=== PATIENT | male | born 1985 | race Caucasian/White ===

== ENCOUNTER 2016-08-28 13:26 | Emergency (ER) | payer OTHER ==
--- NOTE | 2016-08-28 15:07 | DIAGNOSTIC IMAGING REPORT ---
PROCEDURE: XR WRIST MIN 3 VIEWS - RIGHT INDICATION: TRAUMA/INJURY TECHNIQUE: Four views of the right wrist. COMPARISON: None. FINDINGS: Normal mineralization. No fractures. Normal osseous alignment. No suspicious soft-tissue calcification or radiodense foreign bodies. IMPRESSION: 1. Intact right wrist. 2. No radiodense foreign bodies in the indicated area of soft tissue injury.
--- NOTE | 2016-08-28 18:02 | ED DISCHARGE INSTRUCTIONS ---
Patient: FELIPE SURESH General Instructions [facility] VisitID: [id number] [place] [address] 31y, M Registration Date/Time: 08/28/2016 Dog bite to the right wrist. ADDITIONAL INFORMATION Dog Bite If a dog has bitten you and the wound is deep enough to break the skin, an infection may occur. Therefore, you should watch for the warning signs listed below. The doctor may not close the wound completely. This is to allow fluid to drain in the event of an infection. Home Care Watch the wound for signs of infection listed below. In certain types of bites, antibiotics may be prescribed. Begin taking these as soon as possible, as directed until they are all gone. Rabies Prevention If you live in an area where rabies occurs in wild animals, the rabies virus can be passed to cats and dogs. An infected animal can pass the rabies virus to you during a bite. If ahealthy-looking pet dog has bitten you, it should be kept in a secure area for the next 10 days to watch for signs of illness. If the pet cook helper pastry wont cooperate with you, contact the [facility] animal control department (or local law enforcement). If the animal becomes ill or dies days, contact your animal control department at once. The animal must be tested for rabies. If the animal stays healthy for the next 10 days, then there is no danger of rabies in the dog or you. Pets fully vaccinated against rabies (2 shots) are at very low risk for the infection. However, because human rabies is almost always fatal, any biting dog should be kept in confinement for 10 days as an extra precaution. If a stray dog bit you, contact the animal control department. They can provide information on capture, quarantine, and animal rabies testing. If you are unable to locate the animal that bit you in the next 2days, and if rabies exists in your region, you must be evaluated for the rabies vaccine series. Contact your doctor or return here promptly. All animal bites should be reported to the [facility] animal control department. If you were not given a form to fill out, you can report it yourself by calling. Follow Up with your doctor as advised. Most skin wounds heal within 10 days. However, an infection may occur even with proper treatment. Check your woundevery 6 hoursfor 2 days, then at least once a day for the next two days for the signs of infection listed below. Get Prompt Medical Attention if any of the following occur: Signs of infection: Spreading redness Increased pain or swelling Fever of 100.4F (38C) or higher, or as directed by your healthcare provider Colored fluid or pus draining from the wound Headache, confusion, strange behavior, or a seizure (signs of a rabies infection) You have been given the following additional information: Dog Bite (Electronically signed by Nicolette Villarreal P.A.-C 08/28/2016 15:58)
--- NOTE | 2016-08-28 18:02 | ED DISCHARGE INSTRUCTIONS ---
Patient: FELIPE SURESH General Instructions [facility] VisitID: [id number] [place] [address] 31y, M Registration Date/Time: 08/28/2016 Dog bite to the right wrist. ADDITIONAL INFORMATION Dog Bite If a dog has bitten you and the wound is deep enough to break the skin, an infection may occur. Therefore, you should watch for the warning signs listed below. The doctor may not close the wound completely. This is to allow fluid to drain in the event of an infection. Home Care Watch the wound for signs of infection listed below. In certain types of bites, antibiotics may be prescribed. Begin taking these as soon as possible, as directed until they are all gone. Rabies Prevention If you live in an area where rabies occurs in wild animals, the rabies virus can be passed to cats and dogs. An infected animal can pass the rabies virus to you during a bite. If ahealthy-looking pet dog has bitten you, it should be kept in a secure area for the next 10 days to watch for signs of illness. If the pet barrel tester wont cooperate with you, contact the [facility] animal control department (or local law enforcement). If the animal becomes ill or dies slwbyb30 days, contact your animal control department at once. The animal must be tested for rabies. If the animal stays healthy for the next 10 days, then there is no danger of rabies in the dog or you. Pets fully vaccinated against rabies (2 shots) are at very low risk for the infection. However, because human rabies is almost always fatal, any biting dog should be kept in confinement for 10 days as an extra precaution. If a stray dog bit you, contact the animal control department. They can provide information on capture, quarantine, and animal rabies testing. If you are unable to locate the animal that bit you in the next 2days, and if rabies exists in your region, you must be evaluated for the rabies vaccine series. Contact your doctor or return here promptly. All animal bites should be reported to the [facility] animal control department. If you were not given a form to fill out, you can report it yourself by calling. Follow Up with your doctor as advised. Most skin wounds heal within 10 days. However, an infection may occur even with proper treatment. Check your woundevery 6 hoursfor 2 days, then at least once a day for the next two days for the signs of infection listed below. Get Prompt Medical Attention if any of the following occur: Signs of infection: Spreading redness Increased pain or swelling Fever of 100.4F (38C) or higher, or as directed by your healthcare provider Colored fluid or pus draining from the wound Headache, confusion, strange behavior, or a seizure (signs of a rabies infection) You have been given the following additional information: Dog Bite (Electronically signed by Nicolette Villarreal P.A.-C 08/28/2016 15:58)
--- NOTE | 2016-08-28 18:02 | ED MAR SUMMARY ---
..... Medication Administration Record [facility] [address] [place] [place] [address] Patient: FELIPE SURESH Visit ID: [id number] 31y, M Weight: 90.7 kg Height/Length: 73 in BMI: 26.4 ALLERGIES: No Known Drug Allergy Start 14:08/28/2016 Austen Simmons R.N. Medication Administered: IV NS (SALINE), Dose: IV Fluids, Bolus: 1000 mL wide open, Dispensed: 1000 mL bag, Site: #1 left AC. Medication Ordered: IV NS : initial bolus 1000 mL (1000 mL/hr), then 10 mL/hr for X1 (NOW); Rony. Given 14:08/28/2016 Austen Simmons R.N. Medication Administered: DILAUDID [IVP] (HYDROMORPHONE HCL PF), Dose: 1 mg IVP over 2 minute(s), Site: #1 left AC. Medication Ordered: Dilaudid IV 1 mg (HIGH ALERT MEDICATION, NOW). Given 14:33 08/28/2016 Austen Simmons R.N. Medication Administered: TDAP [IM], Dose: 0.5 mL IM. Medication Ordered: Tdap IM 0.5 mL (NOW, per protocol).
--- NOTE | 2016-08-28 18:02 | ED NURSING NOTES ---
Clinical Report - [facility] [address] [place] [address] 08/28/2016 13:27 Patient: FELIPE SURESH TRIAGE Triage time 14:04. Acuity: LEVEL 3. Chief Complaint: DOG BITE. ASHANTI COMA SCORE: Ashanti Coma Scale: 15- eyes open spontaneously (4); best verbal response- oriented x 4 (5); best motor response- obeys commands (6). --14:06 Komal Morales R.N. 14:04 08/28/16. BP: 148/77. HR: 94. RR: 16. O2 saturation: 100%. Temp: 98.7 F. Pain level now 9/10. --14:06 Komal Morales R.N. Weight: 90.7 kg stated. Height/Length: 73 inches Per Patient. BMI: 26.4. --14:05 Komal Morales R.N. Medications Methadone 90mg. --14:04 Komal Morales R.N. Allergies No Known Drug Allergy. --14:04 Komal Morales R.N. History Arrived by private vehicle. Historian: patient. Location of injuries: right wrist. This occurred yesterday. Circumstances: This was an "unprovoked" attack. ( walking [place] and bit by stray dog). The animal reportedly appeared well and the immunization status of the animal is unknown. 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 PAST MEDICAL HX: Tetanus status: unknown. Immunizations: status is unknown. SOCIAL HX: Current some days smoker. No alcohol use or drug use. FALL RISK ASSESSMENT: Fall risk assessment completed. No fall risk identified. NUTRITIONAL RISK ASSESSMENT: The nutritional risk assessment revealed no deficiencies. FUNCTIONAL ASSESSMENT: Functional assessment: no impairments noted. LEARNING NEEDS ASSESSMENT: The learning needs assessment revealed no barriers. SKIN INTEGRITY ASSESSMENT: Skin integrity risk assessment completed. No skin integrity risk identified. --14:06 Komal Morales R.N. ADDITIONAL SURGERIES: no known surgeries. Interventions ID band on patient. To room. --14:06 Komal Morales R.N. PHYSICAL ASSESSMENT GENERAL / NEURO / PSYCH: Alert. Oriented X 4. RESPIRATORY: Respirations not labored. CVS: Normal heart rate and rhythm. GI / : Abdomen soft. EXTREMITIES: Right wrist: tenderness, swelling and multiple puncture wounds. SKIN: Skin is warm. --14:07 Komal Morales R.N. NURSING PROGRESS NOTES Two patient identifiers checked. Call light placed in reach. Side rails up x 1. Bed placed in lowest position. Brakes of bed on. Patient ready for evaluation- chart flagged. --14:07 Komal Morales R.N. Patient walked to radiology with tech. (14:Aug 28 2016). --14:19 Austen Simmons R.N. Patient was carried back to ED from radiology with tech. (14:Aug 28 2016). --14:20 Austen Simmons R.N. 14:08/28/2016 Site #1 started via IV in the left antecubital space with an 20g angiocath, with aseptic technique and good blood return; one attempt. Blood drawn: rainbow set. Labeled in the presence of the patient and sent to the lab. Saline lock flushed with 10 mL saline. --14:29 Austen Simmons R.N. 14:08/28/2016 Started bag #1 1000 mL IV Fluids IV NS (Saline); bolus of 1000 mL wide open via site #1. Allergies verified and confirmed 5 rights. IV patency established. IV site checked: no pain, redness, or swelling. IV flushed thoroughly pre- and post-medication administration. Completed per protocol. --14:29 Austen Simmons R.N. 14:30 08/28/2016 Dilaudid (HYDROmorphone HCl PF) IVP 1 mg given over 2 minute(s) via site #1. Allergies verified, confirmed 5 rights and sedative warning given to the patient. IV patency established. IV site checked: no pain, redness, or swelling. IV flushed thoroughly pre- and post-medication administration. IVP given by RN. --14:30 Austen Simmons R.N. 14:33 08/28/2016 TDAP IM 0.5 mL given. (Lot#: [id number], expiration date: 08/05/2018, Spring Tacker: sanofi pasteur). Given in the left deltoid. Allergies verified and confirmed 5 rights. Vaccine information statement provided to the patient. --14:33 Austen Simmons R.N. ( Pt tolerating POC, IVIP, orders received and completed, Pt resting comfortably, waiting for abx from Pharm.). --14:34 Austen Simmons R.N. 14:57 08/28/2016 Site #1 removed upon discharge. Catheter intact (IV found disconnected from Pt, still attached to running IVF, Pt nowhere in sight, blood on floor and bedding.). --15:07 Austen Simmons R.N. DISPOSITION / DISCHARGE The patient left the Emergency Department without completion of treatment; patient was unaccompanied. The patient appears to be alert, oriented x4 and coherent. Unable to locate patient. Patient paged three times with no response. Notified the ED physician and charge nurse of patient departure. Patient left without signing form prior to leaving. The patient left the Emergency Department ambulatory. ( Found Pt's room empty, IV had been removed. Had no prior warning of Pt's wishes to leave ED. Pt did not receive abx despite him being told that he needed them. Labs were sent, medications given. Attempted to call Pt multiple times, phone # on face sheet did not allow a call to go through. Unable to reach Pt.). The patient eloped. --15:00 Austen Simmons R.N. Departure time: 15:00 Aug 28 2016. --15:00 Austen Simmons R.N. ( Clarification: Room found empty, Pt's IV was found connected to IVF and still running onto bedding, Pt nowhere in sight. Blood on the floor.). --15:06 Austen Simmons R.N. 18:01 08/28/16. BP: unable to obtain due to patient not present. HR: unable to obtain due to patient not present. RR: unable to obtain due to patient not present. O2 saturation: unable to obtain due to patient not present. Temp: unable to obtain due to patient not present. Pain level now unable to obtain due to patient not present. --18:01 Austen Simmons R.N. Locked/Released at 08/28/2016 18:01 by Austen Simmons R.N.
--- NOTE | 2016-08-28 18:02 | ED MED RECONCILIATION SUMMARY ---
Patient: FELIPE SURESH Medication Reconciliation Report [facility] VisitID: [id number] [address] [place] [address] 31y, M Registration Date/Time: 08/28/2016 Weight: 90.7 kg Height/Length: 73 in. BMI: 26.4 ALLERGIES: No Known Drug Allergy The patient's Home Medications are listed below: THE FOLLOWING MEDICATIONS NEED TO BE RECONCILED: Methadone 90mg The source(s) of the original Home Medication information: Not obtained. The following Medications were given to the patient in the Emergency Department: IV NS IV Fluids bolus 1000 mL wide open, administered: 08/28/2016 2:29:00 PM Dilaudid [IVP] IVP 1 mg, administered: 08/28/2016 2:30:00 PM TDAP [IM] IM 0.5 mL, administered: 08/28/2016 2:33:00 PM The following Medications were prescribed to the patient: None.
--- NOTE | 2016-08-28 18:02 | ED ORDER SUMMARY ---
..... Patient: FELIPE SURESH OrderSheet [facility] VisitID: [id number] [place] [address] 31y, M Registration Date/Time: 08/28/2016 ORDER SHEET Weight: 90.7 kg (stated) Allergies: No Known Drug Allergy GENERAL ORDERS: Wrist 3 or 4V Right Urgent (14:07 08/28/2016 TJayne R.N. verbal order read back to EKoroleva P.A.-C) (Ack 14:09 John) (14:17 MCook R.N.) CBC w Diff Urgent (14:10 08/28/2016 EKoroleva P.A.-C) (Ack 14:10 John) (14:28 MCook R.N.) Wound Irrigation (14:26 08/28/2016 EKoroleva P.A.-C) (Ack 14:44 MCook R.N.) (Cancelled: Patient Left15:01 MCook R.N.) MEDICATION ORDERS: Tdap IM 0.5 mL (NOW) (14:07 08/28/2016 TJayne R.N. verbal order read back to EKoroleva P.A.-C) (Cancelled: Duplicate Order14:18 MCook R.N.) Tdap IM 0.5 mL (NOW, per protocol) (14:11 08/28/2016 EKoroleva P.A.-C) (Ack 14:19 MCook R.N.) (14:33 MCook R.N.) IV FLUIDS: IV NS : initial bolus 1000 mL (1000 mL/hr), then 10 mL/hr for X1 (NOW); Rony (14:10 08/28/2016 EKoroleva P.A.-C) (Ack 14:19 MCook R.N.) (14:29 MCook R.N.) Zosyn IV 4.5 gm/100mL (NOW) (14:10 08/28/2016 EKoroleva P.A.-C) (Ack 14:19 MCook R.N.) (Cancelled: Patient Left15:01 MCook R.N.) Dilaudid IV 1 mg (HIGH ALERT MEDICATION, NOW) (14:11 08/28/2016 Zack Medley) ([facility] 14:19 MCdelmy R.N.) (14:30 MCook R.N.) ORDER SHEET NOTES: [Electronically signed by Nicolette Villarreal P.A.-C (15:58 08/28/2016)] [Electronically signed by Austen Simmons R.N. (18:01 08/28/2016)] [Electronically locked/signed by Austen Simmons R.N. (18:01 08/28/2016)]
--- NOTE | 2016-08-28 18:02 | ED CLINICAL REPORT ---
Clinical Report - Physicians/Mid Levels [facility] [address] [place] [place] [address] 08/28/2016 13:27 Patient: FELIPE SURESH Time Seen: 14:21 Aug 28 2016. Arrived- By private vehicle. Historian- patient. HISTORY OF PRESENT ILLNESS Chief Complaint: DOG BITE. Location of injuries- (r. wrist). The injury occurred yesterday. Occurred at home. This was an "unprovoked" attack. Treatment M[employer]ICE- (patient sustained a dog bite almost 22 hours yesterday, from a stray dog in [place], 4 hours after incident his arm started swelling. He has not been seen since. Patient is right-hand dominant. Denies prior injury to the area.). REVIEW OF SYSTEMS No headache, fever or enlarged lymph nodes. All systems otherwise negative, except as recorded above. PAST HISTORY Problems: Tonsillitis. Laceration. Substance Abuse. Additional Surgeries: no known surgeries. Medications: Methadone 90mg. Allergies: No Known Drug Allergy. SOCIAL HISTORY No alcohol use or drug use. ADDITIONAL NOTES The nursing notes have been reviewed. PHYSICAL EXAM Vital Signs: 08/28/2016 14:04 BP: 148/77. HR: 94. RR: 16. O2 saturation: 100%. Temp: 98.7 F. Appearance: Alert. No backboard or C-collar. Head: Head normal on inspection. ENT: Ears normal on inspection. Nose normal on inspection. Neck: Normal inspection. Neck non-tender. CVS: Heart sounds normal. Pulses normal. Respiratory: Breath sounds normal. Chest nontender. Abdomen: Normal inspection. Extremities: Right forearm: (no lymphagetic streaking or rash). Right wrist. (ulnar aspect small abrasion 0.5 cm non gaping, swellling. on ulnar perdomo surface minim al abrasion, no lac, no gaping lac. Full rom, however with pain. Swelling of the wrist.). Neuro: No motor deficit. LABS, X-RAYS, AND EKG Rt Wrist X-ray: (IMPRESSION: 1. Intact right wrist. 2. No radiodense foreign bodies in the indicated area of soft tissue injury. Electronically Final signed by:Genie Hannah MD 08/28/2016 3:07:22 PM). Laboratory Tests: CBC w Diff: (DEMARCUS: 08/28/2016 14:25) ( MsgRcvd 08/28/2016 14:42) Final results Test Result Flag Units (Reference) WHITE BLOOD COUNT 11.4 K/uL (4.5-11.5) RED BLOOD COUNT 4.59 M/uL (4.50-5.90) HEMOGLOBIN 12.7 L gm/dL (13.5-17.5) HEMATOCRIT 38.5 L % (41.0-53.0) MEAN CELL VOLUME 84 fL (80-100) MEAN CORPUSCULAR HGB 28 pg (26-34) MEAN CORPUSCULAR HGB CONC 33 g/dL (31-37) RED CELL DISTRIBUTION WIDTH 14.2 % (11.6-14.8) PLATELET COUNT 240 K/uL (150-400) NEUTROPHIL % 69.0 % (50-75) LYMPH % 16.9 L % (25-40) MONO % 12.7 % (3-14) EOSINOPHIL % 1.0 % (0-4) BASOPHIL % 0.4 % (0-2) . PROGRESS AND PROCEDURES Course of Care: PT LEFT AMA, removed HIS IV, and was not in the room. Attempted to phone patient unable to find. I'm very concerned pt has an infection, did not receive antibiotics, I discussed with him on his arrival need for emergent treatment/ evaluation after dog bites, as this appears very infected. PT NEEDS treatment. Tdap in ER. He was alert and very capable of making his own decision, and did not appear under influence of any substance. LEFT AMA prior to pharmacy sending IV ABX. Patient is stable. The patient's symptoms are unchanged. Disposition: Condition: good. CLINICAL IMPRESSION Dog bite to the right wrist. (Electronically signed by Nicolette Villarreal P.A.-C 08/28/2016 15:58)
--- NOTE | 2016-08-28 18:02 | ED ORDER SUMMARY ---
..... Patient: FELIPE SURESH OrderSheet [facility] VisitID: [id number] [place] [address] 31y, M Registration Date/Time: 08/28/2016 ORDER SHEET Weight: 90.7 kg (stated) Allergies: No Known Drug Allergy GENERAL ORDERS: Wrist 3 or 4V Right Urgent (14:07 08/28/2016 TJayne R.N. verbal order read back to EKoroleva P.A.-C) (Ack 14:09 John) (14:17 MCook R.N.) CBC w Diff Urgent (14:10 08/28/2016 EKoroleva P.A.-C) (Ack 14:10 John) (14:28 MCook R.N.) Wound Irrigation (14:26 08/28/2016 EKoroleva P.A.-C) (Ack 14:44 MCook R.N.) (Cancelled: Patient Left15:01 MCook R.N.) MEDICATION ORDERS: Tdap IM 0.5 mL (NOW) (14:07 08/28/2016 TJayne R.N. verbal order read back to EKoroleva P.A.-C) (Cancelled: Duplicate Order14:18 MCook R.N.) Tdap IM 0.5 mL (NOW, per protocol) (14:11 08/28/2016 EKoroleva P.A.-C) (Ack 14:19 MCook R.N.) (14:33 MCook R.N.) IV FLUIDS: IV NS : initial bolus 1000 mL (1000 mL/hr), then 10 mL/hr for X1 (NOW); Rony (14:10 08/28/2016 EKoroleva P.A.-C) (Ack 14:19 MCook R.N.) (14:29 MCook R.N.) Zosyn IV 4.5 gm/100mL (NOW) (14:10 08/28/2016 EKoroleva P.A.-C) (Ack 14:19 MCook R.N.) (Cancelled: Patient Left15:01 MCook R.N.) Dilaudid IV 1 mg (HIGH ALERT MEDICATION, NOW) (14:11 08/28/2016 Zack Medley) ([facility] 14:19 MCdelmy R.N.) (14:30 MCook R.N.) ORDER SHEET NOTES: [Electronically signed by Nicolette Villarreal P.A.-C (15:58 08/28/2016)] [Electronically signed by Austen Simmons R.N. (18:01 08/28/2016)] [Electronically locked/signed by Austen Simmons R.N. (18:01 08/28/2016)]
--- NOTE | 2016-08-28 18:02 | ED CLINICAL REPORT ---
Clinical Report - Physicians/Mid Levels [facility] [address] [place] [place] [address] 08/28/2016 13:27 Patient: FELIPE SURESH Time Seen: 14:21 Aug 28 2016. Arrived- By private vehicle. Historian- patient. HISTORY OF PRESENT ILLNESS Chief Complaint: DOG BITE. Location of injuries- (r. wrist). The injury occurred yesterday. Occurred at home. This was an "unprovoked" attack. 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 He has not been seen since. Patient is right-hand dominant. Denies prior injury to the area.). REVIEW OF SYSTEMS No headache, fever or enlarged lymph nodes. All systems otherwise negative, except as recorded above. PAST HISTORY Problems: Tonsillitis. Laceration. Substance Abuse. Additional Surgeries: no known surgeries. Medications: Methadone 90mg. Allergies: No Known Drug Allergy. SOCIAL HISTORY No alcohol use or drug use. ADDITIONAL NOTES The nursing notes have been reviewed. PHYSICAL EXAM Vital Signs: 08/28/2016 14:04 BP: 148/77. HR: 94. RR: 16. O2 saturation: 100%. Temp: 98.7 F. Appearance: Alert. No backboard or C-collar. Head: Head normal on inspection. ENT: Ears normal on inspection. Nose normal on inspection. Neck: Normal inspection. Neck non-tender. CVS: Heart sounds normal. Pulses normal. Respiratory: Breath sounds normal. Chest nontender. Abdomen: Normal inspection. Extremities: Right forearm: (no lymphagetic streaking or rash). Right wrist. (ulnar aspect small abrasion 0.5 cm non gaping, swellling. on ulnar perdomo surface minim al abrasion, no lac, no gaping lac. Full rom, however with pain. Swelling of the wrist.). Neuro: No motor deficit. LABS, X-RAYS, AND EKG Rt Wrist X-ray: (IMPRESSION: 1. Intact right wrist. 2. No radiodense foreign bodies in the indicated area of soft tissue injury. Electronically Final signed by:Genie Hannah MD 08/28/2016 3:07:22 PM). Laboratory Tests: CBC w Diff: (DEMARCUS: 08/28/2016 14:25) ( MsgRcvd 08/28/2016 14:42) Final results Test Result Flag Units (Reference) WHITE BLOOD COUNT 11.4 K/uL (4.5-11.5) RED BLOOD COUNT 4.59 M/uL (4.50-5.90) HEMOGLOBIN 12.7 L gm/dL (13.5-17.5) HEMATOCRIT 38.5 L % (41.0-53.0) MEAN CELL VOLUME 84 fL (80-100) MEAN CORPUSCULAR HGB 28 pg (26-34) MEAN CORPUSCULAR HGB CONC 33 g/dL (31-37) RED CELL DISTRIBUTION WIDTH 14.2 % (11.6-14.8) PLATELET COUNT 240 K/uL (150-400) NEUTROPHIL % 69.0 % (50-75) LYMPH % 16.9 L % (25-40) MONO % 12.7 % (3-14) EOSINOPHIL % 1.0 % (0-4) BASOPHIL % 0.4 % (0-2) . PROGRESS AND PROCEDURES Course of Care: PT LEFT AMA, removed HIS IV, and was not in the room. Attempted to phone patient unable to find. I'm very concerned pt has an infection, did not receive antibiotics, I discussed with him on his arrival need for emergent treatment/ evaluation after dog bites, as this appears very infected. PT NEEDS treatment. Tdap in ER. He was alert and very capable of making his own decision, and did not appear under influence of any substance. LEFT AMA prior to pharmacy sending IV ABX. Patient is stable. The patient's symptoms are unchanged. Disposition: Condition: good. CLINICAL IMPRESSION Dog bite to the right wrist. (Electronically signed by Nicolette Villarreal P.A.-C 08/28/2016 15:58)
--- NOTE | 2016-08-28 18:02 | ED MED RECONCILIATION SUMMARY ---
Patient: FELIPE SURESH Medication Reconciliation Report [facility] VisitID: [id number] [address] [place] [address] 31y, M Registration Date/Time: 08/28/2016 Weight: 90.7 kg Height/Length: 73 in. BMI: 26.4 ALLERGIES: No Known Drug Allergy The patient's Home Medications are listed below: THE FOLLOWING MEDICATIONS NEED TO BE RECONCILED: Methadone 90mg The source(s) of the original Home Medication information: Not obtained. The following Medications were given to the patient in the Emergency Department: IV NS IV Fluids bolus 1000 mL wide open, administered: 08/28/2016 2:29:00 PM Dilaudid [IVP] IVP 1 mg, administered: 08/28/2016 2:30:00 PM TDAP [IM] IM 0.5 mL, administered: 08/28/2016 2:33:00 PM The following Medications were prescribed to the patient: None.
--- NOTE | 2016-08-28 18:02 | ED NURSING NOTES ---
Clinical Report - Nurses [facility] [address] [place] [address] 08/28/2016 13:27 Patient: FELIPE SURESH TRIAGE Triage time 14:04. Acuity: LEVEL 3. Chief Complaint: DOG BITE. ASHANTI COMA SCORE: Ashanti Coma Scale: 15- eyes open spontaneously (4); best verbal response- oriented x 4 (5); best motor response- obeys commands (6). --14:06 Komal Morales R.N. 14:04 08/28/16. BP: 148/77. HR: 94. RR: 16. O2 saturation: 100%. Temp: 98.7 F. Pain level now 9/10. --14:06 Komal Morales R.N. Weight: 90.7 kg stated. Height/Length: 73 inches Per Patient. BMI: 26.4. --14:05 Komal Morales R.N. Medications Methadone 90mg. --14:04 Komal Morales R.N. Allergies No Known Drug Allergy. --14:04 Komal Morales R.N. History Arrived by private vehicle. Historian: patient. Location of injuries: right wrist. This occurred yesterday. Circumstances: This was an "unprovoked" attack. ( walking [place] [employer] and bit by stray dog). The animal reportedly appeared well and the immunization status of the animal is unknown. Treatment SUPERVISOR RECEIVING AND PROCESSING: Performed wound care. PAST MEDICAL HX: Tetanus status: unknown. Immunizations: status is unknown. SOCIAL HX: Current some days smoker. No alcohol use or drug use. FALL RISK ASSESSMENT: Fall risk assessment completed. No fall risk identified. NUTRITIONAL RISK ASSESSMENT: The nutritional risk assessment revealed no deficiencies. FUNCTIONAL ASSESSMENT: Functional assessment: no impairments noted. LEARNING NEEDS ASSESSMENT: The learning needs assessment revealed no barriers. SKIN INTEGRITY ASSESSMENT: Skin integrity risk assessment completed. No skin integrity risk identified. --14:06 Komal Morales R.N. ADDITIONAL SURGERIES: no known surgeries. Interventions ID band on patient. To room. --14:06 Komal Morales R.N. PHYSICAL ASSESSMENT GENERAL / NEURO / PSYCH: Alert. Oriented X 4. RESPIRATORY: Respirations not labored. CVS: Normal heart rate and rhythm. GI / : Abdomen soft. EXTREMITIES: Right wrist: tenderness, swelling and multiple puncture wounds. SKIN: Skin is warm. --14:07 Komal Morales R.N. NURSING PROGRESS NOTES Two patient identifiers checked. Call light placed in reach. Side rails up x 1. Bed placed in lowest position. Brakes of bed on. Patient ready for evaluation- chart flagged. --14:07 Komal Morales R.N. Patient walked to radiology with tech. (14:Aug 28 2016). --14:19 Austen Simmons R.N. Patient was carried back to ED from radiology with tech. (14:Aug 28 2016). --14:20 Austen Simmons R.N. 14:08/28/2016 Site #1 started via IV in the left antecubital space with an 20g angiocath, with aseptic technique and good blood return; one attempt. Blood drawn: rainbow set. Labeled in the presence of the patient and sent to the lab. Saline lock flushed with 10 mL saline. --14:29 Austen Simmons R.N. 14:08/28/2016 Started bag #1 1000 mL IV Fluids IV NS (Saline); bolus of 1000 mL wide open via site #1. Allergies verified and confirmed 5 rights. IV patency established. IV site checked: no pain, redness, or swelling. IV flushed thoroughly pre- and post-medication administration. Completed per protocol. --14:29 Austen Simmons R.N. 14:30 08/28/2016 Dilaudid (HYDROmorphone HCl PF) IVP 1 mg given over 2 minute(s) via site #1. Allergies verified, confirmed 5 rights and sedative warning given to the patient. IV patency established. IV site checked: no pain, redness, or swelling. IV flushed thoroughly pre- and post-medication administration. IVP given by RN. --14:30 Austen Simmons R.N. 14:33 08/28/2016 TDAP IM 0.5 mL given. (Lot#: [id number], expiration date: 08/05/2018, Dozer Operator: sanofi pasteur). Given in the left deltoid. Allergies verified and confirmed 5 rights. Vaccine information statement provided to the patient. --14:33 Austen Simmons R.N. ( Pt tolerating POC, IVIP, orders received and completed, Pt resting comfortably, waiting for abx from Pharm.). --14:34 Austen Simmons R.N. 14:57 08/28/2016 Site #1 removed upon discharge. Catheter intact (IV found disconnected from Pt, still attached to running IVF, Pt nowhere in sight, blood on floor and bedding.). --15:07 Austen Simmons R.N. DISPOSITION / DISCHARGE The patient left the Emergency Department without completion of treatment; patient was unaccompanied. The patient appears to be alert, oriented x4 and coherent. Unable to locate patient. Patient paged three times with no response. Notified the ED physician and charge nurse of patient departure. Patient left without signing form prior to leaving. The patient left the Emergency Department ambulatory. ( Found Pt's room empty, IV had been removed. Had no prior warning of Pt's wishes to leave ED. Pt did not receive abx despite him being told that he needed them. Labs were sent, medications given. Attempted to call Pt multiple times, phone # on face sheet did not allow a call to go through. Unable to reach Pt.). The patient eloped. --15:00 Austen Simmons R.N. Departure time: 15:00 Aug 28 2016. --15:00 Austen Simmons R.N. ( Clarification: Room found empty, Pt's IV was found connected to IVF and still running onto bedding, Pt nowhere in sight. Blood on the floor.). --15:06 Austen Simmons R.N. 18:01 08/28/16. BP: unable to obtain due to patient not present. HR: unable to obtain due to patient not present. RR: unable to obtain due to patient not present. O2 saturation: unable to obtain due to patient not present. Temp: unable to obtain due to patient not present. Pain level now unable to obtain due to patient not present. --18:01 Austen Simmons R.N. Locked/Released at 08/28/2016 18:01 by Austen Simmons R.N.
--- NOTE | 2016-08-28 18:02 | ED MAR SUMMARY ---
..... Medication Administration Record [facility] [address] [place] [address] Patient: FELIPE SURESH Visit ID: [id number] 31y, M Weight: 90.7 kg Height/Length: 73 in BMI: 26.4 ALLERGIES: No Known Drug Allergy Start 14:08/28/2016 Austen Simmons R.N. Medication Administered: IV NS (SALINE), Dose: IV Fluids, Bolus: 1000 mL wide open, Dispensed: 1000 mL bag, Site: #1 left AC. Medication Ordered: IV NS : initial bolus 1000 mL (1000 mL/hr), then 10 mL/hr for X1 (NOW); Rony. Given 14:08/28/2016 Austen Simmons R.N. Medication Administered: DILAUDID [IVP] (HYDROMORPHONE HCL PF), Dose: 1 mg IVP over 2 minute(s), Site: #1 left AC. Medication Ordered: Dilaudid IV 1 mg (HIGH ALERT MEDICATION, NOW). Given 14:33 08/28/2016 Austen Simmons R.N. Medication Administered: TDAP [IM], Dose: 0.5 mL IM. Medication Ordered: Tdap IM 0.5 mL (NOW, per protocol).
== END 2016-08-28 15:00 | disposition left against medical advice (07) ==
LOC: ED SRH 13:26
DX: S61.551A Open bite of right wrist, initial encounter (principal); W54.0XXA Bitten by dog, initial encounter; Y92.410 Unspecified street and highway as the place of occurrence of the external cause; L08.9 Local infection of the skin and subcutaneous tissue, unspecified; Y99.8 Other external cause status; Z23 Encounter for immunization; Z72.0 Tobacco use; Z79.899 Other long term (current) drug therapy